=== PATIENT | female | born 1985 | race Caucasian/White ===

== ENCOUNTER 2021-11-16 14:34 | Outpatient (RCR) | payer OTHER, SELFPAY ==
[2021-11-16 15:34] LABS: Beta HCG Quantitative 4.25 mIU/ML
== END 2022-02-14 23:59 | disposition home or self-care (01) ==
LOC: ANHLAB 14:34
PROVIDERS: Visit Provider Obstetrics & Gynecology
DX: O20.0 Threatened abortion (principal); Z3A.00 Weeks of gestation of pregnancy not specified
CPT/HCPCS: 36415; 84702

== ENCOUNTER 2022-03-16 10:31 | Outpatient (CLI) | payer OTHER, SELFPAY ==
--- NOTE | ~2022-03-16 | US_ITS ---
US thyroid INDICATION: Domi's thyroiditis. Next swelling. TECHNIQUE: Real-time sonographic images of the thyroid gland were obtained. COMPARISON: No prior studies for comparison. FINDINGS: The right thyroid lobe measures 4 x 1.4 x 1.3 cm. The left thyroid lobe measures 3.8 x 1.2 x 1.4 cm. There is normal echotexture and echogenicity throughout the thyroid gland. There are small bilateral thyroid nodules which are 3 mm or less, likely benign. Normal vascular flow is present. IMPRESSION: 1. Small bilateral thyroid nodules measuring 3 mm or less, likely benign. Reviewed, dictated and finalized at location A.
== END 2022-03-16 10:32 | disposition home or self-care (01) ==
PROVIDERS: Visit Provider Nurse Practitioner
DX: E04.2 Nontoxic multinodular goiter (principal)
CPT/HCPCS: 76536